=== PATIENT | female | born 1965 ===

== ENCOUNTER 2021-11-20 10:18 | Emergency (ER) | payer SELFPAY ==
[2021-11-20 10:20] VITALS: BP 153/86
== END 2021-11-20 18:23 | disposition left against medical advice (07) ==
LOC: ED 10:18
DX: F41.9 Anxiety disorder, unspecified (principal); R42 Dizziness and giddiness; Z53.21 Procedure and treatment not carried out due to patient leaving prior to being seen by health care provider